=== PATIENT | male | born 1975 | race Caucasian/White ===

== ENCOUNTER → 2018-01-31 | Outpatient (CLI) | payer BC ==
[2018-01-31 20:04] LABS: Hemoglobin A1C 5.7 % (4.0-6.0)
== END | disposition home or self-care (01) ==
LOC: LABWHC1 12:46
PROVIDERS: ATTEND Family Medicine
DX: E11.42 Type 2 diabetes mellitus with diabetic polyneuropathy (principal); M19.042 Primary osteoarthritis, left hand; M19.041 Primary osteoarthritis, right hand
CPT/HCPCS: 36415; 83036; 85652

== ENCOUNTER 2020-11-06 19:39 | Inpatient (IN) | payer BC, OTHER ==
[2020-11-06] MEDS ORDERED: SODIUM CHLORIDE 0.9% 1,000 ML IV STA (20:06)
[2020-11-06] MEDS ORDERED: PANTOPRAZOLE 40 MG/10 ML VIAL IVP STA (20:06)
--- NOTE | 2020-11-06 20:09 | ED ---
GI Bleed HPI - General Chief complaint: GI Bleed Stated complaint: Dizziness Time Seen by Provider: 11/06/20 19:57 Source: patient, family Mode of arrival: wheelchair Limitations: no limitations - History of Present Illness Initial comments: 45-year-old male presents to emergency with a chief complaint of a GI bleed. Patient reports 2 days ago he noticed dark tarry stools so he went to his primary care physician who obtained a stool occult sample which came back positive. He made an appointment for him with Dr. Allison for colonoscopy on Tuesday. Patient reports today he began to feel lightheaded and noticed he looked more pale than usual. He denies any abdominal pain nausea vomiting or diarrhea. Denies any hematuria, hematochezia. He denies any chest pain or shortness of breath. Denies recent NSAID use. - Related Data Allergies Allergy/AdvReac Type Severity Reaction Status Date / Time No Known Allergies Allergy Verified 11/06/20 19:49 Review of Systems ROS Statement: Those systems with pertinent positive or pertinent negative responses have been documented in the HPI. ROS Other: All systems not noted in ROS Statement are negative. Past Medical History Past Medical History: Asthma History of Any Multi-Drug Resistant Organisms: None Reported Past Surgical History: No Surgical Hx Reported Past Psychological History: No Psychological Hx Reported Smoking Status: Vaper Past Alcohol Use History: Rare Past Drug Use History: None Reported General Exam Limitations: no limitations General appearance: alert, in no apparent distress, obese Head exam: Present: atraumatic, normocephalic, normal inspection Eye exam: Present: normal appearance, PERRL, EOMI Pupils: Present: normal accommodation ENT exam: Present: normal exam, normal oropharynx, mucous membranes moist Neck exam: Present: normal inspection, full ROM. Absent: tenderness Respiratory exam: Present: normal lung sounds bilaterally. Absent: respiratory distress, wheezes, rales, rhonchi, stridor Cardiovascular Exam: Present: regular rate, normal rhythm, normal heart sounds. Absent: systolic murmur GI/Abdominal exam: Present: soft. Absent: distended, tenderness, guarding, rebound Extremities exam: Present: normal inspection, full ROM, normal capillary refill. Absent: tenderness, pedal edema, joint swelling Back exam: Present: normal inspection, full ROM. Absent: tenderness Neurological exam: Present: alert, oriented X3 Psychiatric exam: Present: normal affect, normal mood Skin exam: Present: warm, dry, intact, normal color, pallor Course Vital Signs 11/06/20 19:43 Temperature 97.9 F Pulse Rate 136 H Respiratory 20 Rate Blood Pressure 118/84 O2 Sat by Pulse 98 Oximetry Medical Decision Making - Medical Decision Making 45-year-old male presents to emergency with a chief complaint of a GI bleed. On physical examination, patient has pallor and the skin. Patient had a stool culture from yesterday that was positive.. He is otherwise not over any of any other symptoms. No abdominal tenderness. Patient did have a brief syncopal episode while in the ED while he was getting an IV placed. This may have been vasovagal. He has a hemoglobin of 8. Considering he continues to have symptomatically anemia. I will begin blood transfusion. Patient will be admitted for further medical management. Case discussed with BRYANT Jones who will admit for Dr. Ray. Case discussed with Dr. Gu GI consult - Lab Data Result diagrams: 11/06/20 20:19 11/06/20 20:19 Lab Results 11/06/20 11/06/20 11/06/20 Range/Units 20:19 20:19 20:19 WBC 12.6 H (3.8-10.6) k/uL RBC 2.65 L (4.30-5.90) m/uL Hgb 8.0 L (13.0-17.5) gm/dL Hct 24.1 L (39.0-53.0) % MCV 91.0 (80.0-100.0) fL MCH 30.4 (25.0-35.0) pg MCHC 33.4 (31.0-37.0) g/dL RDW 13.9 (11.5-15.5) % Plt Count 222 (150-450) k/uL MPV 9.1 Neutrophils % 57 % Lymphocytes % 34 % Monocytes % 4 % Eosinophils % 2 % Basophils % 1 % Neutrophils # 7.2 (1.3-7.7) k/uL Lymphocytes # 4.3 (1.0-4.8) k/uL Monocytes # 0.5 (0-1.0) k/uL Eosinophils # 0.2 (0-0.7) k/uL Basophils # 0.1 (0-0.2) k/uL APTT 21.4 L (22.0-30.0) sec Sodium 136 L (137-145) mmol/L Potassium 4.6 (3.5-5.1) mmol/L Chloride 106 (98-107) mmol/L Carbon Dioxide 23 (22-30) mmol/L Anion Gap 7 mmol/L BUN 31 H (9-20) mg/dL Creatinine 0.80 (0.66-1.25) mg/dL Est GFR (CKD-EPI)AfAm >90 (>60 ml/min/1.73 sqM) Est GFR (CKD-EPI)NonAf >90 (>60 ml/min/1.73 sqM) Glucose 124 H (74-99) mg/dL Plasma Lactic Acid Brennen (0.7-2.0) mmol/L Calcium 8.6 (8.4-10.2) mg/dL Magnesium 1.7 (1.6-2.3) mg/dL Total Bilirubin 0.3 (0.2-1.3) mg/dL AST 27 (17-59) U/L ALT 37 (4-49) U/L Alkaline Phosphatase 40 (38-126) U/L Troponin I (0.000-0.034) ng/mL Total Protein 5.3 L (6.3-8.2) g/dL Albumin 3.4 L (3.5-5.0) g/dL Lipase 113 (23-300) U/L Blood Type Blood Type Recheck Bld Type Recheck Status Antibody Screen Spec Expiration Date 11/06/20 11/06/20 11/06/20 Range/Units 20:19 20:19 20:19 WBC (3.8-10.6) k/uL RBC (4.30-5.90) m/uL Hgb (13.0-17.5) gm/dL Hct (39.0-53.0) % MCV (80.0-100.0) fL MCH (25.0-35.0) pg MCHC (31.0-37.0) g/dL RDW (11.5-15.5) % Plt Count (150-450) k/uL MPV Neutrophils % % Lymphocytes % % Monocytes % % Eosinophils % % Basophils % % Neutrophils # (1.3-7.7) k/uL Lymphocytes # (1.0-4.8) k/uL Monocytes # (0-1.0) k/uL Eosinophils # (0-0.7) k/uL Basophils # (0-0.2) k/uL APTT (22.0-30.0) sec Sodium (137-145) mmol/L Potassium (3.5-5.1) mmol/L Chloride (98-107) mmol/L Carbon Dioxide (22-30) mmol/L Anion Gap mmol/L BUN (9-20) mg/dL Creatinine (0.66-1.25) mg/dL Est GFR (CKD-EPI)AfAm (>60 ml/min/1.73 sqM) Est GFR (CKD-EPI)NonAf (>60 ml/min/1.73 sqM) Glucose (74-99) mg/dL Plasma Lactic Acid Brennen 1.4 (0.7-2.0) mmol/L Calcium (8.4-10.2) mg/dL Magnesium (1.6-2.3) mg/dL Total Bilirubin (0.2-1.3) mg/dL AST (17-59) U/L ALT (4-49) U/L Alkaline Phosphatase (38-126) U/L Troponin I <0.012 (0.000-0.034) ng/mL Total Protein (6.3-8.2) g/dL Albumin (3.5-5.0) g/dL Lipase (23-300) U/L Blood Type O Positive Blood Type Recheck No Previous Record Bld Type Recheck Status CABO Indicated Antibody Screen NEGATIVE Spec Expiration Date 11/09/2020 - 2318 - EKG Data EKG Comments: Sinus tachycardia Ventricular rate 111, ID 142, QRS 96, QTC 451. Disposition Clinical Impression: Symptomatic anemia, GI bleed Disposition: ADMITTED IP TO THIS [facility] Condition: Good Is patient prescribed a controlled substance at d/c from ED?: No Referrals: Everett Padilla DO [Primary Care Provider] - 1-2 days Time of Disposition: 21:35
[2020-11-06 20:38] LABS: Basophils # (A) 0.1 k/uL (0-0.2); Basophils % (A) 1 %; Eosinophils # (A) 0.2 k/uL (0-0.7); Eosinophils % (A) 2 %; HCT 24.1 % (39.0-53.0); Lymphocytes # (A) 4.3 k/uL (1.0-4.8); Lymphocytes % (A) 34 %; MCH 30.4 pg (25.0-35.0); MCHC 33.4 g/dL (31.0-37.0); Mean Platelet Volume 9.1; Monocytes # (A) 0.5 k/uL (0-1.0); Monocytes % (A) 4 %; Neutrophils # (A) 7.2 k/uL (1.3-7.7); Neutrophils % (A) 57 %; Platelet Count 222 k/uL (150-450); RBC 2.65 m/uL (4.30-5.90); RDW 13.9 % (11.5-15.5); WBC 12.6 k/uL (3.8-10.6)
[2020-11-06 20:48] LABS: ALT 37 U/L (4-49); AST 27 U/L (17-59); African American GFR (CKD) >90 (>60 ml/min/1.73 sqM); Albumin 3.4 g/dL (3.5-5.0); Alkaline Phosphatase 40 U/L (38-126); Anion Gap 7 mmol/L; Blood Urea Nitrogen 31 mg/dL (9-20); Calcium 8.6 mg/dL (8.4-10.2); Carbon Dioxide 23 mmol/L (22-30); Chloride 106 mmol/L (98-107); Glucose 124 mg/dL (74-99); Lipase 113 U/L (23-300); Magnesium 1.7 mg/dL (1.6-2.3); Non-African American GFR(CKD) >90 (>60 ml/min/1.73 sqM); Potassium 4.6 mmol/L (3.5-5.1); Sodium 136 mmol/L (137-145); Total Bilirubin 0.3 mg/dL (0.2-1.3); Total Protein 5.3 g/dL (6.3-8.2)
[2020-11-06] MEDS ORDERED: NALOXONE 0.4 MG/ML 1 ML VIAL IV PRN (21:31)
[2020-11-07 06:31] LABS: Basophils % (A) 0 %; Eosinophils # (A) 0.1 k/uL (0-0.7); Eosinophils % (A) 1 %; HCT 22.5 % (39.0-53.0); HGB 7.7 gm/dL (13.0-17.5); Lymphocytes # (A) 2.5 k/uL (1.0-4.8); Lymphocytes % (A) 26 %; MCH 31.2 pg (25.0-35.0); MCHC 34.3 g/dL (31.0-37.0); Mean Platelet Volume 8.4; Monocytes # (A) 0.6 k/uL (0-1.0); Monocytes % (A) 6 %; Neutrophils # (A) 6.2 k/uL (1.3-7.7); Neutrophils % (A) 65 %; Platelet Count 189 k/uL (150-450); RBC 2.47 m/uL (4.30-5.90); RDW 14.1 % (11.5-15.5); WBC 9.5 k/uL (3.8-10.6)
--- NOTE | 2020-11-07 12:56 | P.GSCN ---
History of Present Illness Consult date: 11/07/20 Reason for Consult: GI bleeding History of present illness: The patient's a 45-year-old man who is scheduled to see me in the office next week for GI bleeding. Tuesday he noticed some dark tarry stools. He went into his primary care doctor and was found to be Hemoccult positive. He had felt pretty good at that point. Yesterday he began getting lightheaded and so came into the emergency department and was noted to have anemia. He feels better this afternoon. He has no problems with heartburn or indigestion. No abdominal pain. No nausea or vomiting. Other than the stool changing color this week he hasn't had any change in bowel habits. No history of ulcer disease. No family history of GI malignancy or inflammatory bowel disease. Review of Systems All systems: negative Past Medical History Past Medical History: Asthma History of Any Multi-Drug Resistant Organisms: None Reported Past Surgical History: No Surgical Hx Reported Past Psychological History: No Psychological Hx Reported Smoking Status: Vaper Past Alcohol Use History: Rare Past Drug Use History: None Reported Medications and Allergies Home Medications Medication Instructions Recorded Confirmed Type Lisinopril-Hctz 10-12.5 mg 1 tab PO DAILY 11/06/20 11/06/20 History [Zestoretic 10-12.5] Allergies Allergy/AdvReac Type Severity Reaction Status Date / Time No Known Allergies Allergy Verified 11/06/20 21:57 Surgical - Exam Osteopathic Statement: *. No significant issues noted on an osteopathic structural exam other than those noted in the History and Physical/Consult. Vital Signs Temp Pulse Resp BP Pulse Ox 97.9 F 136 H 20 118/84 98 11/06/20 19:43 11/06/20 19:43 11/06/20 19:43 11/06/20 19:43 11/06/20 19:43 - General well developed, well nourished, no distress - Eyes normal ocular movement - Neck trachea midline - Respiratory normal respiratory effort, clear to auscultation - Cardiovascular Rhythm: regular - Abdomen Abdomen: soft, non tender, bowel sounds, no guarding, no rigid, no rebound, no distended Results - Labs 11/07/20 06:08 11/06/20 20:19 Abnormal Lab Results - Last 24 Hours (Table) 11/06/20 11/06/20 11/06/20 Range/Units 20:19 20:19 20:19 WBC 12.6 H (3.8-10.6) k/uL RBC 2.65 L (4.30-5.90) m/uL Hgb 8.0 L (13.0-17.5) gm/dL Hct 24.1 L (39.0-53.0) % APTT 21.4 L (22.0-30.0) sec Sodium 136 L (137-145) mmol/L BUN 31 H (9-20) mg/dL Glucose 124 H (74-99) mg/dL Total Protein 5.3 L (6.3-8.2) g/dL Albumin 3.4 L (3.5-5.0) g/dL Crossmatch 11/06/20 11/07/20 Range/Units 20:19 06:08 WBC (3.8-10.6) k/uL RBC 2.47 L (4.30-5.90) m/uL Hgb 7.7 L (13.0-17.5) gm/dL Hct 22.5 L (39.0-53.0) % APTT (22.0-30.0) sec Sodium (137-145) mmol/L BUN (9-20) mg/dL Glucose (74-99) mg/dL Total Protein (6.3-8.2) g/dL Albumin (3.5-5.0) g/dL Crossmatch See Detail Diabetes panel 11/06/20 Range/Units 20:19 Sodium 136 L (137-145) mmol/L Potassium 4.6 (3.5-5.1) mmol/L Chloride 106 (98-107) mmol/L Carbon Dioxide 23 (22-30) mmol/L BUN 31 H (9-20) mg/dL Creatinine 0.80 (0.66-1.25) mg/dL Glucose 124 H (74-99) mg/dL Calcium 8.6 (8.4-10.2) mg/dL AST 27 (17-59) U/L ALT 37 (4-49) U/L Alkaline Phosphatase 40 (38-126) U/L Total Protein 5.3 L (6.3-8.2) g/dL Albumin 3.4 L (3.5-5.0) g/dL Calcium panel 11/06/20 Range/Units 20:19 Calcium 8.6 (8.4-10.2) mg/dL Albumin 3.4 L (3.5-5.0) g/dL Pituitary panel 11/06/20 Range/Units 20:19 Sodium 136 L (137-145) mmol/L Potassium 4.6 (3.5-5.1) mmol/L Chloride 106 (98-107) mmol/L Carbon Dioxide 23 (22-30) mmol/L BUN 31 H (9-20) mg/dL Creatinine 0.80 (0.66-1.25) mg/dL Glucose 124 H (74-99) mg/dL Calcium 8.6 (8.4-10.2) mg/dL Adrenal panel 11/06/20 Range/Units 20:19 Sodium 136 L (137-145) mmol/L Potassium 4.6 (3.5-5.1) mmol/L Chloride 106 (98-107) mmol/L Carbon Dioxide 23 (22-30) mmol/L BUN 31 H (9-20) mg/dL Creatinine 0.80 (0.66-1.25) mg/dL Glucose 124 H (74-99) mg/dL Calcium 8.6 (8.4-10.2) mg/dL Total Bilirubin 0.3 (0.2-1.3) mg/dL AST 27 (17-59) U/L ALT 37 (4-49) U/L Alkaline Phosphatase 40 (38-126) U/L Total Protein 5.3 L (6.3-8.2) g/dL Albumin 3.4 L (3.5-5.0) g/dL Assessment and Plan (1) GI bleed Current Visit: Yes Status: Acute Code(s): K92.2 - GASTROINTESTINAL HEMORRHAGE, UNSPECIFIED SNOMED Code(s): 76517854 (2) Symptomatic anemia Current Visit: Yes Status: Acute Code(s): D64.9 - ANEMIA, UNSPECIFIED SNOMED Code(s): 148943056 Plan: Given the stool has been black and tarry, and recommended EGD to rule out ulcer disease. Endoscopy isn't available this afternoon so will do this for him in the morning. If that's normal we'll schedule a colonoscopy this admission. The procedure, risks and complications were discussed. Questions were encouraged and answered. DVT and ulcer prophylaxis. Serial H&H. Further recommendations to follow.
[2020-11-07] MEDS ORDERED: PANTOPRAZOLE 40 MG/10 ML VIAL IVP SCH (13:00)
--- NOTE | 2020-11-07 15:43 | P.HPIM ---
History of Present Illness H&P Date: 11/07/20 This is a pleasant 45-year-old male who presented to the emergency department with feeling lightheaded and feelings of passing out with near syncopal events that had progressively gotten worse at work and continued throughout the evening and came to the emergency department for further evaluation. Patient had been experiencing black tarry stools for the last few days and was scheduled outpatient with Dr. Garcia for colonoscopy this Tuesday but given his symptoms he came to the ER to be evaluated. Hemoglobin on admission was found to be 8 and was given 1 unit of PRBCs being that he was symptomatic. Denies any abdominal discomfort or any increased use of NSAIDs and denies any changes in bowel habits until a few days ago when he noticed the change in color of his stools. Patient was Hemoccult positive. GI initially consulted although there is no coverage for GI and have consulted Dr. Garcia for further evaluation and possible endoscopic intervention. EKG done in the ER shows sinus tachycardia with a heart rate of 111 otherwise normal EKG. White blood count mildly elevated at 12.6 and hemoglobin was 8.0, sodium was 136 with a potassium of 4.6 and current creatinine was 0.80. Magnesium was 1.7 and liver functions within normal limits, troponin was negative and lipase was 113. COVID-19 was negative and patient has not received immunizations for this. Patient does follow at [facility] with Dr. La as his primary care provider. Patient has a past medical history of asthma and hypertension. Patient states he quit smoking 1 year ago and denies any alcohol or other drug use. Patient denies any chest pain, shortness of breath, or palpitations. Patient denies any nausea or vomiting and does not have any abdominal discomfort. Review of Systems Constitutional: Denies chills, Denies fever Ears, nose, mouth and throat: Denies headache, Denies sore throat Cardiovascular: Denies chest pain, Denies shortness of breath Respiratory: Denies cough Gastrointestinal: Reports change in bowel habits, Reports melena Musculoskeletal: Denies myalgias Integumentary: Denies pruritus, Denies rash Neurological: Denies numbness, Denies weakness Psychiatric: Denies anxiety, Denies depression Endocrine: Denies fatigue, Denies weight change Past Medical History Past Medical History: Asthma History of Any Multi-Drug Resistant Organisms: None Reported Past Surgical History: No Surgical Hx Reported Past Psychological History: No Psychological Hx Reported Smoking Status: Vaper Past Alcohol Use History: Rare Past Drug Use History: None Reported Medications and Allergies Home Medications Medication Instructions Recorded Confirmed Type Lisinopril-Hctz 10-12.5 mg 1 tab PO DAILY 11/06/20 11/06/20 History [Zestoretic 10-12.5] Allergies Allergy/AdvReac Type Severity Reaction Status Date / Time No Known Allergies Allergy Verified 11/06/20 21:57 Physical Exam Vitals: Vital Signs Temp Pulse Pulse Resp BP BP Pulse Ox 11/07/20 08:45 102 H 11/07/20 07:00 98.1 F 102 H 18 110/64 98 11/07/20 02:24 98.7 F 109 H 18 115/66 99 11/07/20 01:10 98.6 F 110 H 16 111/66 99 11/06/20 23:10 98.4 F 120 H 18 145/81 100 11/06/20 22:23 97.3 F L 111 H 17 117/71 99 11/06/20 22:13 97.0 F L 105 H 17 129/56 99 11/06/20 22:11 97 F L 108 H 17 115/61 99 11/06/20 19:43 97.9 F 136 H 20 118/84 98 Intake and Output 11/06/20 11/07/20 11/07/20 22:59 06:59 14:59 Intake Total 0 310 Balance 0 310 Intake: Blood Product 0 310 Rc As-1 Unit 0 310 [id number] Other: # Voids 2 # Bowel Movements 1 Weight 127.006 kg 127.006 kg Gen: This is a 45-year-old male awake alert and oriented 3, well-developed, well-nourished, obese. Temp is 98.1F, pulse is 102, respirations are 18, blood pressure is 110/64, oxygen saturation is 98% on room air. HEENT: Head is atraumatic, normocephalic. Pupils equal, round. Sclerae is anicteric. NECK: Supple. No JVD. No lymphadenopathy. No thyromegaly. LUNGS: Diminished breath sounds bilaterally with no wheezing or rhonchi noted. No intercostal retractions. HEART: S1, S2 muffled ABDOMEN: Soft. Obese. Bowel sounds are present. No masses. No tenderness. EXTREMITIES: No pedal edema. No calf tenderness. NEUROLOGICAL: Patient is awake, alert and oriented x3. Cranial nerves 2 through 12 are grossly intact. Results CBC & Chem 7: 11/07/20 06:08 11/06/20 20:19 Labs: Abnormal Lab Results - Last 24 Hours (Table) 11/06/20 11/06/20 11/06/20 Range/Units 20:19 20:19 20:19 WBC 12.6 H (3.8-10.6) k/uL RBC 2.65 L (4.30-5.90) m/uL Hgb 8.0 L (13.0-17.5) gm/dL Hct 24.1 L (39.0-53.0) % APTT 21.4 L (22.0-30.0) sec Sodium 136 L (137-145) mmol/L BUN 31 H (9-20) mg/dL Glucose 124 H (74-99) mg/dL Total Protein 5.3 L (6.3-8.2) g/dL Albumin 3.4 L (3.5-5.0) g/dL Crossmatch 11/06/20 11/07/20 Range/Units 20:19 06:08 WBC (3.8-10.6) k/uL RBC 2.47 L (4.30-5.90) m/uL Hgb 7.7 L (13.0-17.5) gm/dL Hct 22.5 L (39.0-53.0) % APTT (22.0-30.0) sec Sodium (137-145) mmol/L BUN (9-20) mg/dL Glucose (74-99) mg/dL Total Protein (6.3-8.2) g/dL Albumin (3.5-5.0) g/dL Crossmatch See Detail Thrombosis Risk Factor Assmnt - DVT/VTE Prophylaxis DVT/VTE Prophylaxis: Contraindicated - See note (Acute GI bleed) Assessment and Plan Assessment: Possible acute upper GI bleed with dark tarry stools Near syncopal episode most likely secondary to acute blood loss anemia Acute blood loss anemia secondary to acute GI bleed History of asthma Hypertension Remote history of tobacco use Remote history of alcohol use, quit 1 month ago GI prophylaxis DVT prophylaxis, early ambulation Full code Plan: Patient was seen and evaluated by surgery Dr. Garcia and started on clear liquid diet and will be nothing by mouth at midnight with plans for upper endoscopy to evaluate for any bleed and possibly bowel prepping for colonoscopy given he is symptomatic and continues to have dark tarry stools. Recommend continue to monitor hemoglobin closely and transfuse if less than 7. Patient is currently 7.7 and will repeat labs in continue with serial H&H. Will continue with Protonix twice daily. Patient normally takes lisinopril/hydrochlorothiazide at home and blood pressures have been on the lower side and will hold and continue to monitor closely. Time with Patient: Greater than 30
[2020-11-07 19:11] LABS: Basophils % (A) 0 %; Eosinophils # (A) 0.2 k/uL (0-0.7); Eosinophils % (A) 2 %; Lymphocytes # (A) 2.8 k/uL (1.0-4.8); Lymphocytes % (A) 32 %; MCH 31.7 pg (25.0-35.0); MCHC 35.2 g/dL (31.0-37.0); MCV 90.2 fL (80.0-100.0); Mean Platelet Volume 8.3; Monocytes # (A) 0.4 k/uL (0-1.0); Monocytes % (A) 4 %; Neutrophils # (A) 5.1 k/uL (1.3-7.7); Neutrophils % (A) 59 %; Platelet Count 194 k/uL (150-450); RBC 2.12 m/uL (4.30-5.90); RDW 15.3 % (11.5-15.5); WBC 8.7 k/uL (3.8-10.6)
[2020-11-07 19:21] LABS: HCT 19.1 % (39.0-53.0); HGB 6.7 gm/dL (13.0-17.5)
[2020-11-08] MEDS: PANTOPRAZOLE 40 MG/10 ML VIAL IVP SCH ×3 (00:18→20:48)
[2020-11-08] MEDS ORDERED: PROPOFOL 10 MG/ML 20 ML VIAL IV ONE (08:47)
[2020-11-08] MEDS ORDERED: LIDOCAINE 1% INJ 10MG/ML (20 ML MDV) ONE (08:47)
[2020-11-08] MEDS ORDERED: IV FLUID CONTINUATION 1,000 ML IV ONE (08:55)
--- NOTE | 2020-11-08 09:02 | P.PCN ---
Date of Procedure: 11/08/20 Preoperative Diagnosis: GI bleeding, blood loss anemia Postoperative Diagnosis: GI bleeding, blood loss anemia, sliding hiatal hernia, gastritis, duodenitis Procedure(s) Performed: EGD with biopsy Anesthesia: MARSHA Surgeon: Patria Garcia Pathology: other Condition: stable Disposition: floor Indications for Procedure: The patient presented with melanotic stools and a drop in hemoglobin Description of Procedure: Patient's taken to the endoscopy suite were gastroscope is passed per mouth to the third and fourth portions of the duodenum. The pharynx is unremarkable. The esophagus is without evidence of esophagitis or mass lesion. He has a small sliding hiatal hernia. There is some mild gastritis in the antrum. There is also several areas of mucosal erythema in the duodenal bulb. Cold biopsies were obtained in the duodenum and antrum. Passed the duodenal bulb the mucosa all appeared unremarkable. There was no evidence of new or old blood in the upper digestive tract. The fundus and body of the stomach appeared unremarkable. He tolerated the procedure without difficulty and is taken to recovery room in satisfactory condition. He'll be prepped for colonoscopy tomorrow.
[2020-11-08 09:29] LABS: Basophils # (A) 0.04 X 10*3/uL (0.00-0.10); Basophils % (A) 0.5 %; Eosinophils # (A) 0.14 X 10*3/uL (0.04-0.35); Eosinophils % (A) 1.8 %; HCT 21.3 % (39.6-50.0); Lymphocytes # (A) 2.14 X 10*3/uL (0.90-5.00); Lymphocytes % (A) 27.1 %; MCH 29.7 pg (27.0-32.0); MCHC 32.9 g/dL (32.0-37.0); MCV 90.3 fL (80.0-97.0); Mean Platelet Volume 11.1 fL (9.5-12.2); Monocytes # (A) 0.54 X 10*3/uL (0.20-1.00); Monocytes % (A) 6.8 %; Neutrophils # (A) 4.91 X 10*3/uL (1.80-7.70); Neutrophils % (A) 62.3 %; Platelet Count 179 X 10*3/uL (140-440); RBC 2.36 X 10*6/uL (4.40-5.60); RDW 14.6 % (11.5-14.5); WBC 7.89 X 10*3/uL (4.50-10.00)
[2020-11-08] MEDS ORDERED: FUROSEMIDE 10 MG/ML 2 ML VIAL IV ONE (10:40)
[2020-11-08] MEDS ORDERED: PEG 3350-NA SULF,BICARB,CL/KCL 4,000 ML BOTTLE PO ONE (16:00)
--- NOTE | 2020-11-08 17:59 | XR ---
EXAMINATION TYPE: XR chest 1V portable DATE OF EXAM: 11/08/2020 COMPARISON: NONE HISTORY: Short of breath TECHNIQUE: Single view FINDINGS: Heart and mediastinum are normal. Lungs are clear of infiltrate. There is no heart failure. Costophrenic angles are clear. IMPRESSION: No active cardiopulmonary disease. No heart failure.
--- NOTE | 2020-11-08 18:51 | PN ---
PROGRESS NOTE DATE OF SERVICE: 11/08/2020 This 45-year-old gentleman admitted with significant GI bleed had EGD by Dr. Garcia which showed a sliding hiatal hernia and has gastritis and duodenitis. The patient's hemoglobin has dropped to 7 today and the patient is being transfused one more time. Sodium is 136. Dr. Garcia is planning colonoscopy. Patient is being closely monitored. Patient does have significant tarry stools. PAST MEDICAL HISTORY: Reviewed. REVIEW OF SYSTEMS: CARDIOVASCULAR No angina or palpitations. RESPIRATORY As mentioned earlier. GI As mentioned earlier. No dysuria or hematuria. NERVOUS No numbness or weakness. CURRENT MEDICATIONS: Reviewed include Narcan and Protonix. PHYSICAL EXAMINATION: Patient is alert and oriented x3. Pulse is 85, blood pressure 147/72, respirations 17, temperature 98.4, pulse ox 97% on room air. HEENT: Conjunctivae normal. Oral mucosa pale. NECK: No jugular venous distention. No lymph node enlargement. CARDIOVASCULAR: S1, S2, muffled. No S3, no S4, RESPIRATORY: Diminished breath sounds at the bases. A few scattered rhonchi. ABDOMEN: Soft, obese, nontender. No mass palpable. LEGS: No edema, no swelling. NERVOUS SYSTEM: No focal deficits. LABS: WBC 7.8, hemoglobin 7. ASSESSMENT: 1. Gastrointestinal bleed with acute blood loss anemia, status post transfusions x3. 2. Hyponatremia. 3. Sliding hiatal hernia, gastritis and duodenitis in the EGD. 4. History of asthma. 5. History of vaping. RECOMMENDATIONS AND DISCUSSION: In this 45-year-old gentleman who presented with multiple complex medical issues, we will monitor the patient closely, continue the current management and symptomatic treatment. One more unit of transfusion will be arranged today with Lasix post. Repeat labs tomorrow. Otherwise, I would also recommend a colonoscopy per surgery. Guarded prognosis because of multiple complex medical issues. Further recommendations to follow. Coagulation tests also will be ordered. See orders for details. MMODL / IJN: [id number] /
[2020-11-08 19:57] LABS: Basophils % (A) 0 %; Eosinophils # (A) 0.2 k/uL (0-0.7); Eosinophils % (A) 2 %; HCT 25.9 % (39.0-53.0); Lymphocytes # (A) 2.2 k/uL (1.0-4.8); Lymphocytes % (A) 27 %; MCH 31.1 pg (25.0-35.0); MCHC 33.9 g/dL (31.0-37.0); MCV 91.7 fL (80.0-100.0); Mean Platelet Volume 8.3; Monocytes # (A) 0.4 k/uL (0-1.0); Monocytes % (A) 5 %; Neutrophils # (A) 5.1 k/uL (1.3-7.7); Neutrophils % (A) 64 %; Platelet Count 177 k/uL (150-450); RBC 2.82 m/uL (4.30-5.90)
[2020-11-08 20:02] LABS: Appearance,Urine Clear (Clear); Bilirubin,Urine Negative (Negative); Blood,Urine Negative (Negative); Color,Urine Yellow; Glucose,Urine (UA) Negative (Negative); Ketones,Urine Negative (Negative); Leukocyte Esterase,Urine Negative (Negative); Nitrite,Urine Negative (Negative); Protein,Urine Negative (Negative); Specific Gravity,Urine 1.013 (1.001-1.035); Urobilinogen,Urine <2.0 mg/dL (<2.0)
[2020-11-08 20:02] LABS: HGB 8.8 gm/dL (13.0-17.5)
[2020-11-08 20:19] LABS: Partial Thromboplastin Time 21.6 sec (22.0-30.0); Prothrombin Time 10.3 sec (9.0-12.0)
[2020-11-09 02:03] LABS: Basophils % (A) 0 %; Eosinophils # (A) 0.2 k/uL (0-0.7); Eosinophils % (A) 2 %; HCT 25.2 % (39.0-53.0); HGB 8.5 gm/dL (13.0-17.5); Lymphocytes # (A) 2.5 k/uL (1.0-4.8); Lymphocytes % (A) 33 %; MCH 31.1 pg (25.0-35.0); MCV 91.7 fL (80.0-100.0); Mean Platelet Volume 8.4; Monocytes # (A) 0.4 k/uL (0-1.0); Monocytes % (A) 5 %; Neutrophils # (A) 4.2 k/uL (1.3-7.7); Neutrophils % (A) 56 %; Platelet Count 178 k/uL (150-450); RBC 2.74 m/uL (4.30-5.90); RDW 15.3 % (11.5-15.5); WBC 7.5 k/uL (3.8-10.6)
[2020-11-09] MEDS: PANTOPRAZOLE 40 MG/10 ML VIAL IVP SCH ×2 (07:47→19:43)
[2020-11-09] MEDS: LISINOPRIL-HCTZ 10-12.5 MG 1 EACH TAB PO SCH (07:47)
[2020-11-09] MEDS ORDERED: LIDOCAINE 1% INJ 10MG/ML (20 ML MDV) ONE (07:57)
[2020-11-09] MEDS ORDERED: PROPOFOL 10 MG/ML 20 ML VIAL IV ONE (07:57)
[2020-11-09] MEDS ORDERED: SODIUM CHLORIDE 0.9% 1,000 ML IV ONE ×2 (08:00)
--- NOTE | 2020-11-09 08:30 | P.PCN ---
Date of Procedure: 11/09/20 Preoperative Diagnosis: GI bleeding, acute blood loss anemia Postoperative Diagnosis: GI bleeding, acute blood loss anemia, diverticulosis, colon polyp Procedure(s) Performed: Colonoscopy with polypectomy Anesthesia: MAC Surgeon: Patria Garcia Pathology: other Condition: stable Disposition: floor Indications for Procedure: Patient presented with GI bleeding and anemia Description of Procedure: The patient's taken to the endoscopy suite where colonoscope is passed per rectum to the cecum. He has a good prep. There is a little bit of liquid which is able to be irrigated. He has diffuse diverticulosis noted through the entire colon including the cecum, ascending and some of the transverse colon. Diminutive polyp in the descending colon which is removed with cold biopsy forceps. Otherwise the colon was without evidence of mass lesion, ulcer, stricture or other mucosal abnormality. No evidence of new or old blood was seen in the colon. The bleeding is presumed to be diverticular in nature. He'll be monitored. I'll order a capsule endoscopy. Further recommendations to follow
--- NOTE | 2020-11-09 08:32 | P.PN ---
Progress Note - Text Progress Note Date: 11/09/20 On today's colonoscopy there was extensive diverticulosis. No evidence of diverticulitis. No evidence of new or old blood. I'll order a capsule endoscopy. If he has recurrent bleeding, recommend bleeding scan or angiography
[2020-11-09] MEDS ORDERED: SIMETHICONE 40 MG/0.6 ML DROPS 2,000 MG/30 ML BOTTLE PO ONE (09:10)
[2020-11-09 11:47] LABS: Basophils % (A) 1 %; Eosinophils # (A) 0.1 k/uL (0-0.7); Eosinophils % (A) 1 %; HGB 9.1 gm/dL (13.0-17.5); Lymphocytes # (A) 1.8 k/uL (1.0-4.8); Lymphocytes % (A) 28 %; MCH 31.2 pg (25.0-35.0); MCHC 33.5 g/dL (31.0-37.0); MCV 93.2 fL (80.0-100.0); Mean Platelet Volume 8.1; Monocytes # (A) 0.3 k/uL (0-1.0); Monocytes % (A) 5 %; Neutrophils % (A) 63 %; Platelet Count 209 k/uL (150-450); RDW 15.3 % (11.5-15.5); WBC 6.3 k/uL (3.8-10.6)
--- NOTE | 2020-11-09 20:26 | PN ---
PROGRESS NOTE DATE OF SERVICE: 11/09/2020 This 45-year-old gentleman admitted with acute GI bleed received 3 units of transfusion. Patient had EGD and colonoscopy by Dr. Garcia. The colonoscopy done yesterday showed diffuse diverticulosis. A diminutive polyp was noted. No evidence of any bleeding was noted. Dr. Garcia is planning capsule today. No chest pain. No palpitations. No fever. Past medical history reviewed. REVIEW OF SYSTEMS: CARDIOVASCULAR SYSTEM: No angina. RESPIRATION: As mentioned earlier. GI: As mentioned earlier. : No dysuria. NERVOUS SYSTEM: No numbness, weakness. CURRENT MEDICATIONS: Reviewed. They include Zestril, Narcan, Protonix. PHYSICAL EXAMINATION: Patient alert and oriented x3. Pulse 84, blood pressure 117/75, respirations 17, temperature 98.1, pulse ox 97% on room air. HEENT: Conjunctivae pale. NECK: No jugular venous distention. CARDIOVASCULAR: S1, S2 muffled. RESPIRATION: Breath sounds diminished at the bases. No rhonchi. No crackles. ABDOMEN: Soft, nontender. No mass palpable. LEGS: No edema. No swelling. NERVOUS SYSTEM: No focal deficit. LABS: Hemoglobin 9.1. ASSESSMENT: 1. Gastrointestinal bleed, possibly with acute blood loss anemia, status post transfusion x3. 2. Hyponatremia. 3. Sliding hiatal hernia, gastritis and duodenitis on EGD. 4. Diverticulosis and diminutive polyp in the colonoscopy. 5. History of asthma. 6. History of vaping. RECOMMENDATIONS AND DISCUSSION: I recommend to continue current medications, continue with symptomatic treatment. Repeat labs. Otherwise, monitor closely. Capsule endoscopy. Guarded prognosis. Further recommendations to follow. Closely follow with Surgery. MMODL / IJN: [id number] /
[2020-11-10 02:22] VITALS: TEMP 98.3
[2020-11-10] MEDS: LISINOPRIL-HCTZ 10-12.5 MG 1 EACH TAB PO SCH (07:44)
[2020-11-10] MEDS: PANTOPRAZOLE 40 MG/10 ML VIAL IVP SCH (07:44)
[2020-11-10 08:25] VITALS: BP 107/68; PULSE 76; RESP 16
[2020-11-10 09:18] LABS: Basophils # (A) 0.04 X 10*3/uL (0.00-0.10); Basophils % (A) 0.6 %; Eosinophils # (A) 0.14 X 10*3/uL (0.04-0.35); Eosinophils % (A) 2.1 %; HCT 25.3 % (39.6-50.0); HGB 8.3 g/dL (13.0-17.0); Lymphocytes # (A) 1.97 X 10*3/uL (0.90-5.00); Lymphocytes % (A) 30.2 %; MCH 30.7 pg (27.0-32.0); MCHC 32.8 g/dL (32.0-37.0); MCV 93.7 fL (80.0-97.0); Mean Platelet Volume 10.7 fL (9.5-12.2); Monocytes # (A) 0.53 X 10*3/uL (0.20-1.00); Monocytes % (A) 8.1 %; Neutrophils # (A) 3.79 X 10*3/uL (1.80-7.70); Neutrophils % (A) 58.2 %; Platelet Count 200 X 10*3/uL (140-440); RDW 15.7 % (11.5-14.5); WBC 6.52 X 10*3/uL (4.50-10.00)
[2020-11-10 10:17] LABS: African American GFR (CKD) 103.4 (60.0-200.0); Anion Gap 13.8 mmol/L (4.00-12.00); Calcium 8.6 mg/dL (8.7-10.3); Carbon Dioxide 22.2 mmol/L (21.6-31.8); Non-African American GFR(CKD) 89.2 (60.0-200.0); Potassium 3.7 mmol/L (3.5-5.5)
--- NOTE | 2020-11-11 09:30 | P.DS ---
Providers Date of admission: 11/08/20 07:44 Expected date of discharge: 11/10/20 Attending physician: Gigi Ray Consults: 11/07/20 08:49 Consult Physician Stat Consulting Provider: Patria Garcia Consult Reason/Comments: gi bleed/ known to pt Do you want consulting provider notified?: Yes Primary care physician: Everett Padilla Hospital Course: Final diagnosis Gastrointestinal bleed, possibly acute blood loss anemia status post transfusion 3 Hyponatremia Sliding hiatal hernia with gastritis and duodenitis on EGD Diverticulosis and diminutive polyp on colonoscopy History of asthma history of vaping GI prophylaxis DVT prophylaxis Full code Discharge disposition Patient is being discharged in a stable condition with guarded prognosis to home. Patient will follow-up with Dr. Padilla upon discharge. Patient will continue with Protonix 40 mg twice daily until follow-up with surgery Dr. Garcia in the outpatient setting to discuss results. Prescription provided for repeat labs and close monitoring of CBC. Total time taken is 35 minutes. Hospital course This is a pleasant 45-year-old male who presented to the emergency department with feeling lightheaded and feelings of passing out with near syncopal events that had progressively gotten worse at work and continued throughout the evening and came to the emergency department for further evaluation. Patient had been experiencing black tarry stools for the last few days and was scheduled outpatient with Dr. Garcia for colonoscopy this Tuesday but given his symptoms he came to the ER to be evaluated. Hemoglobin on admission was found to be 8 and was given 1 unit of PRBCs being that he was symptomatic. Denies any abdominal discomfort or any increased use of NSAIDs and denies any changes in bowel habits until a few days ago when he noticed the change in color of his stools. Patient was Hemoccult positive. GI initially consulted although there is no coverage for GI and have consulted Dr. Garcia for further evaluation and possible endoscopic intervention. EKG done in the ER shows sinus tachycardia with a heart rate of 111 otherwise normal EKG. White blood count mildly elevated at 12.6 and hemoglobin was 8.0, sodium was 136 with a potassium of 4.6 and current creatinine was 0.80. Magnesium was 1.7 and liver functions within normal limits, troponin was negative and lipase was 113. COVID-19 was negative and patient has not received immunizations for this. Patient does follow at the [facility] with Dr. Padilla as his primary care provider. Patient has a past medical history of asthma and hypertension. Patient states he quit smoking 1 year ago and denies any alcohol or other drug use. Patient denies any chest pain, shortness of breath, or palpitations. Patient denies any nausea or vomiting and does not have any abdominal discomfort. 11/10/2020 Patient underwent EGD showing sliding hiatal hernia with gastritis and duodenitis along with diverticulosis and no signs of diverticulitis with a diminutive polyp that was biopsied and will follow-up with Dr. Garcia outpatient surgery to discuss test results. Prescription also provided for close monitoring of CBC. Hemoglobin today is 8.3 with no further bleeding noted. Instructed the patient to closely monitor for any signs of bleeding and reports her primary care provider along with surgery in the outpatient setting if any signs of bleeding occurs. Patient also encourage and instructed to avoid tobacco use any alcohol use and continue with low fiber diet and slowly advance as tolerated. Patient will continue on Protonix twice daily until follow-up with surgery. Patient is adamant about going home today and is requesting a discharge. Patient did undergo small bowel capsule study has been completed and will follow-up with surgery for results. Currently no reports of chest pain, shortness of breath, or palpitations. Patient is afebrile. No reports of nausea or vomiting and patient is tolerating diet. Gen: This is a 45-year-old male awake alert and oriented 3, well-developed, well-nourished, obese. HEENT: Head is atraumatic, normocephalic. Pupils equal, round. Sclerae is anicteric. NECK: Supple. No JVD. No lymphadenopathy. No thyromegaly. LUNGS: Diminished breath sounds bilaterally with no wheezing or rhonchi noted. No intercostal retractions. HEART: S1, S2 muffled ABDOMEN: Soft. Obese. Bowel sounds are present. No masses. No tenderness. EXTREMITIES: No pedal edema. No calf tenderness. NEUROLOGICAL: Patient is awake, alert and oriented x3. Cranial nerves 2 through 12 are grossly intact. Please refer to medication reconciliation sheet for a list of medications. Patient Condition at Discharge: Stable Plan - Discharge Summary New Discharge Prescriptions: New Pantoprazole Sodium [Protonix] 40 mg PO BID 30 Days #60 tab Continue Lisinopril-Hctz 10-12.5 mg [Zestoretic 10-12.5] 1 tab PO DAILY Discharge Medication List Lisinopril-Hctz 10-12.5 mg [Zestoretic 10-12.5] 1 tab PO DAILY 11/06/20 [History] Pantoprazole Sodium [Protonix] 40 mg PO BID 30 Days #60 tab 11/10/20 [Rx] Follow up Appointment(s)/Referral(s): Everett Padilla DO [Primary Care Provider] - 1-2 days Patria Garcia DO [Doctor of Osteopathic Medicine] - 1 Week Ambulatory/Diagnostic Orders: Complete Blood Count w/diff [LAB.AMB] Time Frame: 2 Days, Location: None Selected Patient Instructions/Handouts: Gastrointestinal Bleeding (DC) Activity/Diet/Wound Care/Special Instructions: Activity Limited until follow-up Follow-up with primary care provider on discharge Follow-up with surgery Dr. Garcia outpatient in one week Continue with Protonix twice daily until follow-up Recommend repeat labs in 2-3 days to monitor hemoglobin Monitor closely for any signs of continued bleeding and report to primary care as well as surgery Dr. Garcia Continue low fiber diet and slowly advance as tolerated Discharge Disposition: HOME SELF-CARE
== END 2020-11-10 12:58 | disposition home or self-care (01) | DRG 378 ==
LOC: EC 19:39 → 6NMEDSUR 21:49 → OBSVTOIN 11-08 07:44
PROVIDERS: ADMIT Hospitalist; ATTEND Hospitalist
PROC: 30233N1 Transfusion of Nonautologous Red Blood Cells into Peripheral Vein, Percutaneous Approach (ICD-10-PCS; 2020-11-06)
PROC: 0DB78ZX Excision of Stomach, Pylorus, Via Natural or Artificial Opening Endoscopic, Diagnostic (ICD-10-PCS; 2020-11-08)
PROC: 0DB98ZX Excision of Duodenum, Via Natural or Artificial Opening Endoscopic, Diagnostic (ICD-10-PCS; principal; 2020-11-08 08:30)
PROC: 0DBM8ZZ Excision of Descending Colon, Via Natural or Artificial Opening Endoscopic (ICD-10-PCS; 2020-11-09)
DX: K92.2 Gastrointestinal hemorrhage, unspecified (principal); D62 Acute posthemorrhagic anemia; E87.1 Hypo-osmolality and hyponatremia; E66.9 Obesity, unspecified; Z20.822 Contact with and (suspected) exposure to COVID-19; I10 Essential (primary) hypertension; J45.909 Unspecified asthma, uncomplicated; K29.70 Gastritis, unspecified, without bleeding; K29.80 Duodenitis without bleeding; K44.9 Diaphragmatic hernia without obstruction or gangrene; K57.90 Diverticulosis of intestine, part unspecified, without perforation or abscess without bleeding; K63.5 Polyp of colon; Z87.891 Personal history of nicotine dependence
CPT/HCPCS: 36415; 43239; 45380; 71045; 80048; 80053; 81003; 83605; 83690; 83735; 84484; 85025; 85610; 85730; 86850; 86900; 86901; 86920; 87635; 88305; 91110; 93005; 96374; 99285

== ENCOUNTER → 2021-02-04 | Outpatient (CLI) | payer OTHER ==
--- NOTE | 2021-02-04 14:37 | CT ---
EXAMINATION TYPE: CT abdomen pelvis wo con DATE OF EXAM: 02/04/2021 COMPARISON: None HISTORY: Generalized abdominal pain, Abn liver function, nausea CT DLP: 1581.60 mGycm Automated exposure control for dose reduction was used. TECHNIQUE: Helical acquisition of images was performed from the lung bases through the pelvis. FINDINGS: LUNG BASES: 2 mm left lower lobe nodule too small to characterize. LIVER/GB: Low attenuation within the liver is compatible with hepatic steatosis. Central areas of inc reased density within the liver likely related to focal fatty sparing. No gallstones. PANCREAS: No significant abnormality is seen. SPLEEN: No significant abnormality is seen. ADRENALS: No significant abnormality is seen. KIDNEYS: No significant abnormality is seen. ADENOPATHY: None visualized. OSSEOUS STRUCTURES: Hypertrophic and degenerative change of the spine. BOWEL: No significant abnormality is seen. OTHER: Aorta of normal caliber. No free fluid or free air. Tiny fat-containing periumbilical hernia. IMPRESSION: 1. Correlate with hepatic steatosis. 2. 2 mm lower lobe left pulmonary nodule too small to characterize likely benign. Twelve-month follow -up CT chest could be obtained.
== END | disposition home or self-care (01) ==
LOC: RADCTMAIN 12:19
PROVIDERS: ATTEND Family Medicine
DX: R10.84 Generalized abdominal pain (principal); R94.5 Abnormal results of liver function studies; R11.0 Nausea; R91.1 Solitary pulmonary nodule
CPT/HCPCS: 74176

== ENCOUNTER 2023-12-30 06:47 | Emergency (ER) | payer BC, OTHER ==
[2023-12-30 06:55] VITALS: RESP 18; TEMP 98.1
--- NOTE | 2023-12-30 07:29 | ED ---
General Adult HPI - General Chief complaint: Extremity Injury, Upper Stated complaint: L arm pain Time Seen by Provider: 12/30/23 07:00 Source: patient, RN notes reviewed, old records reviewed Mode of arrival: ambulatory - History of Present Illness Initial comments: This is a 48-year-old male who presents to the emergency department stating that yesterday he was carrying some wood he slipped and he jerked his arm back and ever since then has had some lateral left shoulder pain. Patient states he is unable to abduct his arm and he is unable to externally rotate without pain. Patient denies landing on the shoulder. Patient denies any other pain. - Related Data Home Medications Medication Instructions Recorded Confirmed Lisinopril-Hctz 10-12.5 mg 1 tab PO DAILY 11/06/20 11/06/20 [Zestoretic 10-12.5] Previous Rx's Medication Instructions Recorded Pantoprazole Sodium [Protonix] 40 mg PO BID 30 Days #60 tab 11/10/20 Allergies Allergy/AdvReac Type Severity Reaction Status Date / Time No Known Allergies Allergy Verified 12/30/23 06:55 Review of Systems ROS Statement: Those systems with pertinent positive or pertinent negative responses have been documented in the HPI. ROS Other: All systems not noted in ROS Statement are negative. Past Medical History Past Medical History: Asthma, Hypertension History of Any Multi-Drug Resistant Organisms: None Reported Past Surgical History: No Surgical Hx Reported Past Psychological History: No Psychological Hx Reported Smoking Status: Former smoker Past Alcohol Use History: Rare Past Drug Use History: None Reported General Exam - General Exam Comments Initial Comments: GENERAL: Patient is well-developed and well-nourished. Patient is nontoxic and well- hydrated and is in mild distress. ENT: Neck is soft and supple. Moist mucous membranes. Neck has full range of motion without eliciting any pain. EYES: The sclera were anicteric and conjunctiva were pink and moist. Extraocular movements were intact and pupils were equal round and reactive to light. Eyelids were unremarkable. SKIN: Skin is clear with no lesions or rashes and otherwise unremarkable. NEUROLOGIC: Patient is alert and oriented x3. Cranial nerves II through XII are grossly intact. Motor and sensory are also intact. Normal speech, volume and content. Symmetrical smile. MUSCULOSKELETAL: Patient has a lateral shoulder tenderness and is unable to abduct or externally rotate. PSYCHIATRIC: Normal psychiatric evaluation. Course Vital Signs 12/30/23 06:53 Temperature 98.1 F Pulse Rate 89 Respiratory 18 Rate Blood Pressure 172/116 O2 Sat by Pulse 100 Oximetry Medical Decision Making - Medical Decision Making Was pt. sent in by a medical professional or institution (BRYANT Rush, INTEGRATED LOGISTICS PROGRAMS DIRECTOR, urgent care, hospital, or skilled nursing...) When possible be specific @ -No Did you speak to anyone other than the patient for history (EMS, parent, family, police, friend...)? What history was obtained from this source @ -No Did you review nursing and triage notes (agree or disagree)? Why? @ -I reviewed and agree with nursing and triage notes Were old charts reviewed (outside hosp., previous admission, EMS record, old EKG, old radiological studies, urgent care reports/EKG's, skilled nursing records)? Report findings @ -No old charts were reviewed Differential Diagnosis? @ -Humerus fracture, AC dislocation, scapular fracture, clavicle fracture, shoulder strain, rotator cuff injury, this is not an all-inclusive list EKG interpreted by me (3pts min.). @ -As above X-rays interpreted by me (1pt min.). @ -X-ray shows no acute abnormality CT interpreted by me (1pt min.). @ -None done U/S interpreted by me (1pt. min.). @ -None done What testing was considered but not performed or refused? (CT, X-rays, U/S, labs)? Why? @ -None What meds were considered but not given or refused? Why? @ -None Did you discuss the management of the patient with other professionals (professionals i.e. BRYANT Rush, INTEGR[employer] LOGISTICS PROGRAMS DIRECTOR, lab, RT, psych nurse, social services manager, brand leader, teacher, disciplinary hearing officer, shoe parts caser)? Give summary @ -No Was smoking cessation discussed for >3mins.? @ -No Was critical care preformed (if so, how long)? @ -No Were there social determinants of health that impacted care today? How? (Homelessness, low income, unemployed, alcoholism, drug addiction, transportation, low edu. Level, literacy, decrease access to med. care, [facility], rehab)? @ -No Was there de-escalation of care discussed even if they declined (Discuss DNR or withdrawal of care, Hospice)? DNR status @ -No What co-morbidities impacted this encounter? (DM, HTN, Smoking, COPD, CAD, Cancer, CVA, ARF, Chemo, Hep., AIDS, mental health diagnosis, sleep apnea, morbid obesity)? @ -None Was patient admitted / discharged? Hospital course, mention meds given and route, prescriptions, significant lab abnormalities, going to OR and other pertinent info. @ -Patient's x-ray showed no obvious fracture. Patient did receive Motrin Tylenol in the emergency department Undiagnosed new problem with uncertain prognosis? @ -No Drug Therapy requiring intensive monitoring for toxicity (Heparin, Nitro, Insulin, Cardizem)? @ -No Were any procedures done? @ -No Diagnosis/symptom? @ -Shoulder strain Acute, or Chronic, or Acute on Chronic? @ -Acute Uncomplicated (without systemic symptoms) or Complicated (systemic symptoms)? @ -Uncomplicated Side effects of treatment? @ -No Exacerbation, Progression, or Severe Exacerbation? @ -No Poses a threat to life or bodily function? How? (Chest pain, [place], [place], pneumonia, PE, COPD, DKA, ARF, appy, cholecystitis, CVA, Diverticulitis, Homicidal, Suicidal, threat to staff... and all critical care pts) @ -No Disposition Clinical Impression: Strain of shoulder Disposition: HOME SELF-CARE Condition: Good Instructions (If sedation given, give patient instructions): Rotator Cuff Injury (ED) Additional Instructions: Patient should take Motrin and Tylenol as needed for pain Is patient prescribed a controlled substance at d/c from ED?: No Referrals: Ab Blunt DO [Doctor of Osteopathic Medicine] - 1-2 days Everett Padilla DO [Primary Care Provider] - 1-2 days Time of Disposition: 08:26
[2023-12-30] MEDS: ACETAMINOPHEN TAB 500 MG TAB PO STA (07:34)
[2023-12-30] MEDS: IBUPROFEN 600 MG TAB PO STA (07:34)
--- NOTE | 2023-12-30 08:00 | XR ---
EXAMINATION TYPE: XR shoulder complete LT DATE OF EXAM: 12/30/2023 7:42 AM COMPARISON: None. CLINICAL INDICATION: Male, 48 years old with history of Shoulder pain, TECHNIQUE: XR shoulder complete LT view(s) obtained. FINDINGS: The humeral head articulates with the glenoid. The acromio-clavicular junction is normal. No acute fractures or dislocations are evident. A follow up study can be performed 7-10 days from acute trauma for continued pain. MRI can be perfor med if soft tissue evaluation would be of benefit. IMPRESSION: 1. No acute osseous shoulder abnormality. [facility], , 12/30/2023 7:57 AM
[2023-12-30 08:53] VITALS: BP 159/90; PULSE 82
== END 2023-12-30 08:53 | disposition home or self-care (01) ==
LOC: EC 06:47
DX: S46.912A Strain of unspecified muscle, fascia and tendon at shoulder and upper arm level, left arm, initial encounter (principal); Z87.891 Personal history of nicotine dependence; W01.0XXA Fall on same level from slipping, tripping and stumbling without subsequent striking against object, initial encounter
CPT/HCPCS: 99283

== ENCOUNTER 2024-02-13 04:56 | Emergency (ER) | payer BC ==
--- NOTE | 2024-02-13 05:42 | ED ---
General Adult HPI - General Source: patient, RN notes reviewed, old records reviewed Mode of arrival: wheelchair <Josh Owens - Last Filed: 02/13/24 06:53> - General Source: patient, RN notes reviewed, old records reviewed Mode of arrival: wheelchair - History of Present Illness -: hour(s) Radiation: non-radiation Severity scale (1-10): 4 Quality: sharp Consistency: intermittent Improves with: none Worsens with: none Associated Symptoms: chest pain, shortness of breath Treatments Prior to Arrival: none <Laurent Li - Last Filed: 02/13/24 09:24> - General Chief complaint: Chest Pain Stated complaint: chest pain Time Seen by Provider: 02/13/24 05:06 - History of Present Illness Initial comments: 49-year-old male history of hypertension presenting for evaluation of left-sided chest pain. Pain began just prior to arrival. Pain is on the left side of the chest worse with deep inspiration. No associated dyspnea. No lower extremity pain or swelling. No recent travel. No fever. No cough. (Josh Owens) This is a 49-year-old male to ER for left-sided chest pain pain prior to arrival with deep breath, worse pain with deep breath mild shortness of breath. No recent travel history or sick contacts (Laurent Li) - Related Data Home Medications Medication Instructions Recorded Confirmed Lisinopril-Hctz 10-12.5 mg 1 tab PO DAILY 11/06/20 11/06/20 [Zestoretic 10-12.5] Previous Rx's Medication Instructions Recorded Pantoprazole Sodium [Protonix] 40 mg PO BID 30 Days #60 tab 11/10/20 Allergies Allergy/AdvReac Type Severity Reaction Status Date / Time No Known Allergies Allergy Verified 02/13/24 05:07 Review of Systems ROS Other: All systems not noted in ROS Statement are negative. <Josh Owens - Last Filed: 02/13/24 06:53> ROS Other: All systems not noted in ROS Statement are negative. <Laurent Li - Last Filed: 02/13/24 09:24> ROS Statement: Those systems with pertinent positive or pertinent negative responses have been documented in the HPI. Past Medical History Past Medical History: Asthma, Hypertension History of Any Multi-Drug Resistant Organisms: None Reported Past Surgical History: No Surgical Hx Reported Past Psychological History: No Psychological Hx Reported Smoking Status: Former smoker Past Alcohol Use History: Rare Past Drug Use History: None Reported <Josh Owens Santo - Last Filed: 02/13/24 06:53> General Exam General appearance: alert, in no apparent distress Head exam: Present: atraumatic, normocephalic Eye exam: Present: normal appearance, PERRL ENT exam: Present: normal exam Neck exam: Present: normal inspection. Absent: tenderness, meningismus Respiratory exam: Present: normal lung sounds bilaterally. Absent: respiratory distress, wheezes Cardiovascular Exam: Present: normal rhythm GI/Abdominal exam: Present: soft. Absent: distended, tenderness, guarding Extremities exam: Present: normal inspection, normal capillary refill Neurological exam: Present: alert, oriented X3 Psychiatric exam: Present: normal affect, normal mood Skin exam: Present: warm, dry, intact. Absent: cyanosis, diaphoretic <Josh Owens Santo - Last Filed: 02/13/24 06:53> General appearance: alert, in no apparent distress Head exam: Present: atraumatic, normocephalic, normal inspection Eye exam: Present: normal appearance, PERRL, EOMI. Absent: scleral icterus, conjunctival injection, periorbital swelling ENT exam: Present: normal exam, mucous membranes moist Neck exam: Present: normal inspection. Absent: tenderness, meningismus, lymphadenopathy Respiratory exam: Present: normal lung sounds bilaterally. Absent: respiratory distress, wheezes, rales, rhonchi, stridor Cardiovascular Exam: Present: regular rate, normal rhythm, normal heart sounds. Absent: systolic murmur, diastolic murmur, rubs, gallop, clicks GI/Abdominal exam: Present: soft, normal bowel sounds. Absent: distended, tenderness, guarding, rebound, rigid Extremities exam: Present: normal inspection, full ROM, normal capillary refill. Absent: tenderness, pedal edema, joint swelling, calf tenderness Back exam: Present: normal inspection Neurological exam: Present: alert, oriented X3, CN II-XII intact Psychiatric exam: Present: normal affect, normal mood Skin exam: Present: warm, dry, intact, normal color. Absent: rash <Laurent Li - Last Filed: 02/13/24 09:24> Course <JenLaurent B - Last Filed: 02/13/24 09:24> Vital Signs 02/13/24 02/13/24 05:04 08:21 Temperature 97.5 F L 97.7 F Pulse Rate 83 70 Respiratory 18 16 Rate Blood Pressure 153/105 166/106 O2 Sat by Pulse 95 96 Oximetry - Reevaluation(s) Reevaluation #1: 02/13/24 07:42 Medical records reviewed (Laurent Li) Reevaluation #2: 02/13/24 07:42 Patient symptoms improved (Laurent Li) Reevaluation #3: 02/13/24 07:42 Patient informed of results questions answered (Laurent Li) Reevaluation #4: Was pt. sent in by a medical professional or institution (, PA, BUSINESS PLANNING DIRECTOR, urgent care, hospital, or long-term...) When possible be specific @ -no Did you speak to anyone other than the patient for history (EMS, parent, family, police, friend...)? What history was obtained from this source @ -no Did you review nursing and triage notes (agree or disagree)? Why? @ -agree Are old charts reviewed (outside hosp., previous admission, EMS record, old EKG, old radiological studies, urgent care reports/EKG's, long-term records)? Report findings @ -yes Differential Diagnosis (chest pain, altered mental status, abdominal pain women, abdominal pain men, vaginal bleeding, weakness, fever, dyspnea, syncope, hea dache, dizziness, GI bleed, back pain, seizure, CVA, palpatations, mental health, musculoskeletal)? @ -prior EKG interpreted by me (3pts min.). @ -yes X-rays interpreted by me (1pt min.). @ -yes negative for acute disease CT interpreted by me (1pt min.). @ -no U/S interpreted by me (1pt. min.). @ -no What testing was considered but not performed or refused? (CT, X-rays, U/S, labs)? Why? @ -none What meds were considered but not given or refused? Why? @ -none Did you discuss the management of the patient with other professionals (professionals i.e. , PA, BUSINESS PLANNING DIRECTOR, lab, RT, psych nurse, social media sr strategy manager, polymerization engineer, teacher, navigating officer, test case developer)? Give summary @ -no Was smoking cessation discussed for >3mins.? @ -no Was critical care preformed (if so, how long)? @ -no Were there social determinants of health that impacted care today? How? (Homelessness, low income, unemployed, alcoholism, drug addiction, transportation, low edu. Level, literacy, decrease access to med. care, group home, rehab)? @ -none Was there de-escalation of care discussed even if they declined (Discuss DNR or withdrawal of care, Hospice)? DNR status @ -no What co-morbidities impacted this encounter? (DM, HTN, Smoking, COPD, CAD, Cancer, CVA, ARF, Chemo, Hep., AIDS, mental health diagnosis, sleep apnea, mo rbid obesity)? @ -none Was patient admitted / discharged? Hospital course, mention meds given and r oute, prescriptions, significant lab abnormalities, going to OR and other pertinent info. @ - Undiagnosed new problem with uncertain prognosis? @ -no Drug Therapy requiring intensive monitoring for toxicity (Heparin, Nitro, Insulin, Cardizem)? @ -no Were any procedures done? @ -no Diagnosis/symptom? @ - Acute, or Chronic, or Acute on Chronic? @ -Acute Uncomplicated (without systemic symptoms) or Complicated (systemic symptoms)? @ -Complicated Side effects of treatment? @ -no Exacerbation, Progression, or Severe Exacerbation? @ -exacerbation Poses a threat to life or bodily function? How? (Chest pain, USA, MS, pneumonia, PE, COPD, DKA, ARF, appy, cholecystitis, CVA, Diverticulitis, Homicidal, Suicidal, threat to staff... and all critical care pts) @ -yes (Laurent Li) Reevaluation #5: Differential Chest Pain: Stable Angina, Unstable Angina, STEMI, NSTEMI Aortic Dissection, Pneumothorax, Musculoskeletal, Esophageal Spasm GERD, Cholecystitis, Pancreatitis, Zoster, this is not meant to be an all-inclusive list. (Laurent Li) Medical Decision Making - Lab Data Result diagrams: 02/13/24 05:27 02/13/24 05:27 <Josh Owens - Last Filed: 02/13/24 06:53> - Lab Data Result diagrams: 02/13/24 05:27 02/13/24 05:27 - EKG Data -: EKG Interpreted by Me - Radiology Data Radiology results: report reviewed (CTA chest negative for acute disease, chest x-ray is negative for acute disease), image reviewed <Laurent Li Steph - Last Filed: 02/13/24 09:24> - Medical Decision Making Was pt. sent in by a medical professional or institution (BRYANT Rush, BUSINESS PLANNING DIRECTOR, urgent care, hospital, or long-term...) When possible be specific @ -[No] Did you speak to anyone other than the patient for history (EMS, parent, family, police, friend...)? What history was obtained from this source @ -[No] Did you review nursing and triage notes (agree or disagree)? Why? @ -[I reviewed and agree with nursing and triage notes] Were old charts reviewed (outside hosp., previous admission, EMS record, old EKG, old radiological studies, urgent care reports/EKG's, long-term records)? Report findings @ -[No old charts were reviewed] Differential Chest Pain: Stable Angina, Unstable Angina, STEMI, NSTEMI Aortic Dissection, Pneumothorax, Musculoskeletal, Esophageal Spasm GERD, Cholecystitis, Pancreatitis, Zoster, this is not meant to be an all-inclusive list. EKG interpreted by me (3pts min.). @ -Sinus rhythm, right bundle branch block, rate of 78, OK interval 177, QRS duration 161, QTc [address] segment elevation X-rays interpreted by me (1pt min.). @Chest x-ray is negative for acute cardiopulmonary findings. CT interpreted by me (1pt min.). @CT angiography has been ordered, results pending U/S interpreted by me (1pt. min.). @ -[None done] What testing was considered but not performed or refused? (CT, X-rays, U/S, labs)? Why? @ -[None] What meds were considered but not given or refused? Why? @ -[None] Did you discuss the management of the patient with other professionals (professionals i.e. BRYANT Rush, BUSINESS PLANNING DIRECTOR, lab, RT, psych nurse, social media sr strategy manager, polymerization engineer, teacher, navigating officer, test case developer)? Give summary @ -[No] Was smoking cessation discussed for >3mins.? @ -[No] Was critical care preformed (if so, how long)? @ -[No] Were there social determinants of health that impacted care today? How? (Homelessness, low income, unemployed, alcoholism, drug addiction, transportation, low edu. Level, literacy, decrease access to med. care, group home, rehab)? @ -[No] Was there de-escalation of care discussed even if they declined (Discuss DNR or withdrawal of care, Hospice)? DNR status @ -[No] What co-morbidities impacted this encounter? (DM, HTN, Smoking, COPD, CAD, Cancer, CVA, ARF, Chemo, Hep., AIDS, mental health diagnosis, sleep apnea, morbid obesity)? @ -Hypertension Was patient admitted / discharged? Hospital course, mention meds given and route, prescriptions, significant lab abnormalities, going to OR and other pertinent info. @ -Patient care signed out to Dr. Li At shift change awaiting CT angiography and reevaluation. (Josh Owens) 49 male nonspecific chest pain left-sided chest pain not tender to palpation worse with a deep breath CTA negative troponin negative x 2 patient can be discharged home (Laurent Li) - Lab Data Lab Results 02/13/24 02/13/24 02/13/24 Range/Units 05:27 05:27 05:27 WBC 5.3 (3.8-10.6) k/uL RBC 5.57 (4.30-5.90) m/uL Hgb 16.6 (13.0-17.5) gm/dL Hct 49.8 (39.0-53.0) % MCV 89.5 (80.0-100.0) fL MCH 29.9 (25.0-35.0) pg MCHC 33.4 (31.0-37.0) g/dL RDW 13.4 (11.5-15.5) % Plt Count 166 (150-450) k/uL MPV 8.7 Neutrophils % 57 % Lymphocytes % 29 % Monocytes % 7 % Eosinophils % 3 % Basophils % 1 % Neutrophils # 3.0 (1.3-7.7) k/uL Lymphocytes # 1.5 (1.0-4.8) k/uL Monocytes # 0.4 (0-1.0) k/uL Eosinophils # 0.1 (0-0.7) k/uL Basophils # 0.0 (0-0.2) k/uL PT 11.0 (10.0-12.5) sec INR 1.0 (<1.2) APTT 26.3 (22.0-30.0) sec D-Dimer 0.65 H (<0.60) mg/L FEU Sodium 138 (137-145) mmol/L Potassium 4.9 (3.5-5.1) mmol/L Chloride 105 (98-107) mmol/L Carbon Dioxide 24 (22-30) mmol/L Anion Gap 9 mmol/L BUN 12 (9-20) mg/dL Creatinine 0.78 (0.66-1.25) mg/dL Est GFR (CKD-EPI)AfAm >90 (>60 ml/min/1.73 sqM) Est GFR (CKD-EPI)NonAf >90 (>60 ml/min/1.73 sqM) Glucose 120 H (74-99) mg/dL Calcium 9.3 (8.4-10.2) mg/dL Magnesium 1.9 (1.6-2.3) mg/dL Total Bilirubin 0.7 (0.2-1.3) mg/dL AST 69 H (17-59) U/L ALT 119 H (4-49) U/L Alkaline Phosphatase 73 (38-126) U/L Troponin I (0.000-0.034) ng/mL Total Protein 6.8 (6.3-8.2) g/dL Albumin 4.4 (3.5-5.0) g/dL Lipase (23-300) U/L 02/13/24 02/13/24 02/13/24 Range/Units 05:27 08:21 08:21 WBC (3.8-10.6) k/uL RBC (4.30-5.90) m/uL Hgb (13.0-17.5) gm/dL Hct (39.0-53.0) % MCV (80.0-100.0) fL MCH (25.0-35.0) pg MCHC (31.0-37.0) g/dL RDW (11.5-15.5) % Plt Count (150-450) k/uL MPV Neutrophils % % Lymphocytes % % Monocytes % % Eosinophils % % Basophils % % Neutrophils # (1.3-7.7) k/uL Lymphocytes # (1.0-4.8) k/uL Monocytes # (0-1.0) k/uL Eosinophils # (0-0.7) k/uL Basophils # (0-0.2) k/uL PT (10.0-12.5) sec INR (<1.2) APTT (22.0-30.0) sec D-Dimer (<0.60) mg/L FEU Sodium (137-145) mmol/L Potassium (3.5-5.1) mmol/L Chloride (98-107) mmol/L Carbon Dioxide (22-30) mmol/L Anion Gap mmol/L BUN (9-20) mg/dL Creatinine (0.66-1.25) mg/dL Est GFR (CKD-EPI)AfAm (>60 ml/min/1.73 sqM) Est GFR (CKD-EPI)NonAf (>60 ml/min/1.73 sqM) Glucose (74-99) mg/dL Calcium (8.4-10.2) mg/dL Magnesium (1.6-2.3) mg/dL Total Bilirubin (0.2-1.3) mg/dL AST (17-59) U/L ALT (4-49) U/L Alkaline Phosphatase (38-126) U/L Troponin I <0.012 <0.012 (0.000-0.034) ng/mL Total Protein (6.3-8.2) g/dL Albumin (3.5-5.0) g/dL Lipase 99 (23-300) U/L Disposition <Josh Owens - Last Filed: 02/13/24 06:53> Is patient prescribed a controlled substance at d/c from ED?: No <Laurent Li - Last Filed: 02/13/24 09:24> Clinical Impression: Anterior pleuritic pain, Atypical chest pain, Chest pain Disposition: HOME SELF-CARE Condition: Good Instructions (If sedation given, give patient instructions): Chest Pain (ED) Referrals: Everett Padilla DO [Primary Care Provider] - 1-2 days
[2024-02-13 06:08] LABS: ALT 119 U/L (4-49); AST 69 U/L (17-59); African American GFR (CKD) >90 (>60 ml/min/1.73 sqM); Albumin 4.4 g/dL (3.5-5.0); Alkaline Phosphatase 73 U/L (38-126); Anion Gap 9 mmol/L; Blood Urea Nitrogen 12 mg/dL (9-20); Calcium 9.3 mg/dL (8.4-10.2); Carbon Dioxide 24 mmol/L (22-30); Chloride 105 mmol/L (98-107); Glucose 120 mg/dL (74-99); Magnesium 1.9 mg/dL (1.6-2.3); Non-African American GFR(CKD) >90 (>60 ml/min/1.73 sqM); Potassium 4.9 mmol/L (3.5-5.1); Sodium 138 mmol/L (137-145); Total Bilirubin 0.7 mg/dL (0.2-1.3); Total Protein 6.8 g/dL (6.3-8.2)
[2024-02-13 06:11] LABS: Basophils % (A) 1 %; Eosinophils # (A) 0.1 k/uL (0-0.7); Eosinophils % (A) 3 %; HCT 49.8 % (39.0-53.0); HGB 16.6 gm/dL (13.0-17.5); Lymphocytes # (A) 1.5 k/uL (1.0-4.8); Lymphocytes % (A) 29 %; MCH 29.9 pg (25.0-35.0); MCHC 33.4 g/dL (31.0-37.0); MCV 89.5 fL (80.0-100.0); Mean Platelet Volume 8.7; Monocytes # (A) 0.4 k/uL (0-1.0); Monocytes % (A) 7 %; Neutrophils % (A) 57 %; Platelet Count 166 k/uL (150-450); RBC 5.57 m/uL (4.30-5.90); RDW 13.4 % (11.5-15.5); WBC 5.3 k/uL (3.8-10.6)
[2024-02-13 06:14] LABS: Partial Thromboplastin Time 26.3 sec (22.0-30.0)
--- NOTE | 2024-02-13 06:37 | XR ---
EXAM: XR Chest, 2 Views CLINICAL HISTORY: Patient denies cardiac history. Patient states the pain is on the left side if his chest, sharp with no radiation. TECHNIQUE: Frontal and lateral views of the chest. COMPARISON: No relevant prior studies available. FINDINGS: Lungs: Unremarkable. No consolidation. Pleural space: Unremarkable. Mediastinum: Unremarkable. Normal mediastinal contour. Bones/joints: No acute findings. IMPRESSION: No acute findings.
--- NOTE | 2024-02-13 07:20 | CT ---
EXAM: CT Angiography Chest With Intravenous Contrast CLINICAL HISTORY: Pleuritic chest pain, positive D-dimer TECHNIQUE: Axial computed tomographic angiography images of the chest with intravenous contrast. CTDI is 55.4 mGy and DLP is 2284 mGy-cm. This CT exam was performed using one or more of the following dose reduction techniques: automated exposure control, adjustment of the mA and/or kV according to patient size, and/or use of iterative reconstruction technique. MIP reconstructed images were created and reviewed. Coronal and sagittal reformatted images were created and reviewed. 2539 images COMPARISON: No relevant prior studies available. FINDINGS: Pulmonary arteries: Unremarkable. No pulmonary embolism. Aorta: No acute findings. No thoracic aortic aneurysm. Great vessels of aortic arch: Right aberrant subclavian artery. Lungs: Minimal lingular atelectasis/scarring. No mass. Pleural space: Unremarkable. No significant effusion. No pneumothorax. Heart: Unremarkable. No cardiomegaly. No significant pericardial effusion. No evidence of RV dysfunction. Bones/joints: Mild degenerative changes. Moderate mid thoracic scoliosis convexed to the right. Soft tissues: Unremarkable. Lymph nodes: Unremarkable. No enlarged lymph nodes. Liver: Fatty liver. IMPRESSION: No pulmonary embolism. Normal thoracic aorta. No acute findings
[2024-02-13] MEDS: SODIUM CHLORIDE 0.9% 500 ML 500 ML IV STA (09:31)
[2024-02-13] MEDS: KETOROLAC 15 MG/ML 1 ML VIAL IVP STA (09:35)
[2024-02-13 09:41] VITALS: BP 159/99; PULSE 69; RESP 18; TEMP 97.8
== END 2024-02-13 09:41 | disposition home or self-care (01) ==
LOC: EC 04:56
DX: R07.81 Pleurodynia (principal); R07.89 Other chest pain; I10 Essential (primary) hypertension; Z87.891 Personal history of nicotine dependence
CPT/HCPCS: 36415; 93005; 85379; 80053; 83690; 83735; 84484; 85025; 85610; 85730; 71046; 71275; 99285; 96374; J1885; Q9967